=== PATIENT | female | born 1960 | race African-American/Black ===

== ENCOUNTER 2018-06-11 21:09 | Emergency (ER) | payer OTHER ==
[2018-06-11 21:14] VITALS: BP 138/78; PULSE 82; TEMP 100.3; BMI 29.2
[2018-06-11] MEDS ORDERED: ACETAMINOPHEN 500 MG TABLET (FP) PO ONE (21:42)
[2018-06-11] MEDS ORDERED: ACETAMINOPHEN 500 MG TABLET (FP) ONE (21:44)
--- NOTE | 2018-06-11 21:46 | PDOC ---
History of Present Illness - General Chief Complaint: Cold Symptoms Stated Complaint: SORE THROAT Time Seen by Provider: 06/11/18 21:20 History Source: Patient Exam Limitations: No Limitations - History of Present Illness Initial Comments: 06/11/18 21:42 57 yr female with sore throat fever for 2 days . no cough or ear pain. Past History - Past Medical History Allergies/Adverse Reactions: Allergies Allergy/AdvReac Type Severity Reaction Status Date / Time No Known Allergies Allergy Verified 06/11/18 21:28 Home Medications: Ambulatory Orders Diclofenac Sodium [Voltaren -] 50 mg PO TID 06/11/18 - Suicide/Smoking/Psychosocial Hx Smoking History: Never smoked Hx Alcohol Use: No Drug/Substance Use Hx: No Respiratory Specific PMHX - Complaint Specific PMHX Angina: No Bronchitis: No Review of Systems - Review of Systems Able to Perform ROS?: Yes Is the patient limited Mongolian proficient: No Constitutional: Yes: Symptoms Reported, Fever HEENTM: Yes: Throat Pain, Difficulty Swallowing *Physical Exam - Vital Signs Last Vital Signs Temp Pulse Resp BP Pulse Ox 100.3 F H 82 20 138/78 100 06/11/18 21:11 06/11/18 21:11 06/11/18 21:11 06/11/18 21:11 06/11/18 21:11 - Physical Exam General Appearance: Yes: Nourished, Appropriately Dressed HEENT: positive: EOMI, BRITTANI, TMs Normal, Pharyngeal Erythema, Tonsillar Erythema. negative: Tonsillar Exudate Neck: positive: Supple, Tender lateral. negative: Lymphadenopathy (R), Lymphadenopathy (L), Rigidity Respiratory/Chest: positive: Lungs Clear, Normal Breath Sounds Medical Decision Making - Medical Decision Making 06/11/18 21:43 cc: fever, sore throat neg neck pain or headache will check for strep tylenol now for fever and painful swallowing *DC/Admit/Observation/Transfer Diagnosis at time of Disposition: Pharyngitis Qualifiers: Pharyngitis/tonsillitis etiology: unspecified etiology Qualified Code(s): J02.9 - Acute pharyngitis, unspecified - Discharge Dispostion Disposition: HOME Condition at time of disposition: Good - Referrals Referrals: Geovani Black MD [Staff Physician] - - Patient Instructions Additional Instructions: gargle with warm salt water 4-5 times a day take tylenol as directed for pain throat lozengers such as cepacol follow with your doctor on Wednesday if any worse - Post Discharge Activity Forms/Work/School Notes: Back to Work
== END 2018-06-11 22:42 | disposition home or self-care (01) ==
LOC: JERFT 21:09
DX: J02.9 Acute pharyngitis, unspecified (principal)
CPT/HCPCS: 87070; 87430; 99281-25

== ENCOUNTER 2025-01-09 06:41 | Day surgery (SDC) | payer OTHER ==
[2025-01-08 11:07] VITALS: BMI 29.0
[2025-01-09 10:20] VITALS: TEMP 97
[2025-01-09 11:01] VITALS: RESP 18
[2025-01-09 11:02] VITALS: BP 125/61; PULSE 60
== END 2025-01-09 11:30 | disposition home or self-care (01) ==
LOC: JASU-ENDO 06:41
PROVIDERS: ATTEND Internal Medicine Gastroenterology
PROC: 0DB68ZX Excision of Stomach, Via Natural or Artificial Opening Endoscopic, Diagnostic (ICD-10-PCS; principal; 2025-01-09 09:15)
DX: Z87.19 Personal history of other diseases of the digestive system (principal); D13.1 Benign neoplasm of stomach; K29.50 Unspecified chronic gastritis without bleeding
CPT/HCPCS: 88305-TC; 88342-TC